=== PATIENT | female | born 1955 ===

== ENCOUNTER 2020-05-22 11:10 | Emergency (ER) | payer MEDICARE, OTHER ==
[2020-05-22] MEDS ORDERED: Sodium Chloride 0.9% 10 ML Syringe FLUSH PRN (11:24)
[2020-05-22] MEDS ORDERED: HYDROmorphone 2 MG/ML SDV IVPUSH ONE (11:25)
[2020-05-22] MEDS ORDERED: Ondansetron 4 MG/2 ML SDV IVPUSH ONE (11:25)
[2020-05-22] MEDS ORDERED: Sodium Chloride 0.9% 1,000 ML IV SCH (11:30)
[2020-05-22] MEDS ORDERED: Prochlorperazine 10 MG in Sodium Chloride 0.9% 50 ML IV ONE (12:14)
[2020-05-22] MEDS ORDERED: Iopamidol 755 Mg/ML 100 ML Bottle IV ONE (12:33)
--- NOTE | 2020-05-22 13:48 | CT ---
INDICATION: Abdominal pain, epigastric, left lower quadrant, suprapubic area. CT ABDOMEN AND PELVIS WITH CONTRAST: Spiral 3.75 mm axial sections were obtained through the abdomen and pelvis with 100 mL Isovue-370 at 2 mL per second, with sagittal and coronal reconstructions 05/22/20 and compared with 06/04/16. Total exam DLP was 1429.56 mGy-cm. There is some minimal linear density at the lingula which may represent fibrotic change. A definite active infiltrate or effusion was not identified. The heart is normal in size, no pericardial effusion was seen. A small low-density lesion in the posterior right lobe of the liver at the diaphragm is a new findings. It measures maximum of approximately 11 mm. Etiology is indeterminate. Most likely this represents a simple cyst. Additional new low-density lesion is also noted more inferiorly, similar in size with a tinier more anteriorly located right lobe lesion, both of which are either new or increased in size compared with the previous study. The gallbladder showed evidence of minimal gravel present within it, with a slightly prominent wall and some pericholecystic fluid and fat stranding suggested. This raises suspicion for cholecystitis and should be correlated clinically. The common bile duct did not appear to be enlarged in the head of the pancreas. The pancreas had a normal appearance, as did the spleen, adrenal glands, and except for a very tiny cyst off the lower pole of the right kidney previous previously, normal kidneys. Diverticulosis is noted in the descending colon and in the sigmoid colon. There may be some wall thickening of the sigmoid colon again raising question of sigmoid diverticulitis, there is some minimal fat stranding in that area, but no abscess formation or free air was seen. The urinary bladder was fairly normal in appearance. The uterus is absent compatible with hysterectomy. The appendix is absent compatible with appendectomy. No evidence of bowel obstruction or free air was seen. A tiny inguinal hernia is noted on the left, included only fat of questionable significance, present previously. IMPRESSION: 1. Findings suggest cholelithiasis with cholecystitis - correlate clinically. 2. Diverticulosis coli with possible sigmoid diverticulitis again suggested. Some minimal peritonitis in that area could be present as well as in the area of the gallbladder - pericholecystic fluid there. 3. New and/or increased cystic appearing structures in the liver, followup may be warranted. 4. Tiny cyst lower pole right kidney. 5. Post appendectomy. 6. Post hysterectomy. 7. Hypertrophic degenerative changes and disk disease L1-2 and to a greater extent at L2-3, but also a milder extent at L4-5. Report was called to Dr. Borges at 1319 hours. [facility]
--- NOTE | 2020-05-22 14:20 | EDM.PDOC ---
ED HPI GENERAL MEDICAL PROBLEM - General Chief Complaint: Abdominal Pain Stated Complaint: ABD PAIN Time Seen by Provider: 05/22/20 12:45 Source of Information: Reports: Patient History Limitations: Reports: No Limitations - History of Present Illness INITIAL COMMENTS - FREE TEXT/NARRATIVE: Patient presented to the ED because of epigastric and LLQ pain which started this morning.The pain is sharp and cramping, 10/10 with associated nausea and vomiting x 1. there is no associated fever or chills, no cough/cold. Denies any changes in bowel movements or urinary symptoms. Mid-Anterior Abdominal Pain Score (Numeric/FACES): 1 - Related Data Allergies Allergy/AdvReac Type Severity Reaction Status Date / Time diclofenac [From Voltaren] Allergy Severe Hives Verified 05/22/20 13:47 doxycycline Allergy Severe Hives Verified 05/22/20 13:46 amoxicillin [From Augmentin] Allergy Mild Diarrhea Verified 05/22/20 13:47 clavulanic acid Allergy Mild Diarrhea Verified 05/22/20 13:47 [From Augmentin] codeine Allergy Mild Nausea Verified 05/22/20 13:47 hydromorphone [From Dilaudid] Allergy Mild Nausea and Verified 05/22/20 13:47 Vomiting trazodone Allergy Unknown Other Verified 05/22/20 13:47 Home Meds: Home Meds ALPRAZolam [Alprazolam ER] 0.5 mg PO TID PRN 05/22/20 [History] Acetaminophen/HYDROcodone [[place] 325-5 MG] 1 - 2 tab PO Q4H PRN #15 tab 05/22/20 [Rx] FLUoxetine HCl [Fluoxetine HCl] 40 mg PO DAILY 05/22/20 [History] Ondansetron [Zofran ODT] 4 mg PO Q4H PRN #7 tab.dis 05/22/20 [Rx] Zolpidem [Ambien] 10 mg PO BEDTIME PRN 05/22/20 [History] levoFLOXacin [Levaquin] 500 mg PO DAILY #10 tab 05/22/20 [Rx] metroNIDAZOLE [Metronidazole] 500 mg PO TID #30 tablet 05/22/20 [Rx] Past Medical History HEENT History: Reports: Cataract, Other (See Below) Other HEENT History: myopia Gastrointestinal History: Reports: Colon Polyp, GERD Other Gastrointestinal History: Ulcerative colitis Genitourinary History: Reports: UTI, Recurrent SALVAGER History: Reports: Other (See Below) Other SALVAGER History: hysterectomy Musculoskeletal History: Reports: Arthritis Psychiatric History: Reports: Anxiety, Depression Other Psychiatric History: dysthymic disorder - Past Surgical History GI Surgical History: Reports: Appendectomy, Colonoscopy Musculoskeletal Surgical History: Reports: Carpal Tunnel Dermatological Surgical History: Reports: Skin Biopsy, Other (See Below) Social & Family History - Tobacco Use Smoking Status *Q: Never Smoker ED ROS GENERAL - Review of Systems Review Of Systems: See Below Constitutional: Reports: No Symptoms HEENT: Reports: No Symptoms Respiratory: Reports: No Symptoms Cardiovascular: Reports: No Symptoms Endocrine: Reports: No Symptoms GI/Abdominal: Reports: Abdominal Pain, Nausea, Vomiting : Reports: No Symptoms, Discharge Musculoskeletal: Reports: No Symptoms, Neck Pain Skin: Reports: No Symptoms Neurological: Reports: No Symptoms Psychiatric: Reports: No Symptoms ED EXAM, GI/ABD - Physical Exam Exam: See Below Exam Limited By: No Limitations General Appearance: Alert, No Apparent Distress Ears: Normal External Exam, Normal Canal, Hearing Grossly Normal Nose: Normal Inspection, Normal Mucosa Throat/Mouth: Normal Inspection, Normal Lips Head: Atraumatic, Normocephalic Neck: Normal Inspection, Supple, Non-Tender, Full Range of Motion Respiratory/Chest: No Respiratory Distress, Lungs Clear, Normal Breath Sounds Cardiovascular: Normal Peripheral Pulses, Regular Rate, Rhythm, No Edema, No Gallop GI/Abdominal Exam: Normal Bowel Sounds, Soft, No Organomegaly, Other (epigastri and LLQ tenderness) Back Exam: Normal Inspection Extremities: Normal Inspection, Normal Range of Motion Neurological: Alert, Oriented, CN II-XII Intact Course - Vital Signs Text/Narrative:: Lbas/CT-abd/pelvis result was discussed with patient NS 1 L bolus DZofran 4 mg IV x1 Dilaudid 1 mg IV x1 Compazine 10 mg IV x1 Last Recorded V/S: Last Vital Signs Temp 36.7 C 05/22/20 11:15 Pulse 56 L 05/22/20 11:15 Resp 18 05/22/20 11:15 BP 127/60 05/22/20 11:15 Pulse Ox 98 05/22/20 11:15 - Orders/Labs/Meds Labs: Laboratory Tests 05/22/20 05/22/20 05/22/20 Range/Units 11:35 11:35 13:23 Sodium 140 (135-145) mmol/L Potassium 3.7 (3.5-5.3) mmol/L Chloride 102 (100-110) mmol/L Carbon Dioxide 25 (21-32) mmol/L BUN 18 (7-18) mg/dL Creatinine 1.2 H (0.55-1.02) mg/dL Est Cr Clr Drug Dosing TNP Estimated GFR (MDRD) 45 L (>60) BUN/Creatinine Ratio 15.0 (9-20) Glucose 138 H (80-116) mg/dL Calcium 8.8 (8.6-10.2) mg/dL Total Bilirubin 0.4 (0.1-1.3) mg/dL AST 17 (5-25) IU/L ALT 21 (12-36) U/L Alkaline Phosphatase 59 (56-112) IU/L Total Protein 7.1 (6.0-8.0) g/dL Albumin 3.8 (3.2-4.6) g/dL Globulin 3.3 g/dL Albumin/Globulin Ratio 1.2 Amylase 38 (25-115) U/L Lipase 68 L (73-393) U/L Urine Color Yellow (YELLOW) Urine Appearance Clear (CLEAR) Urine pH 8.0 H (5.0-6.5) Ur Specific [place] 1.010 (1.010-1.025) Urine Protein Negative (NEGATIVE) mg/dL Urine Glucose (UA) Normal (NORMAL) mg/dL Urine Ketones Negative (NEGATIVE) mg/dL Urine Occult Blood Negative (NEGATIVE) Urine Nitrite Negative (NEGATIVE) Urine Bilirubin Negative (NEGATIVE) Urine Urobilinogen Normal (NEGATIVE) mg/dL Ur Leukocyte Esterase Negative (NEGATIVE) Urine RBC 0-5 (0-5) Urine WBC 0-5 (0-5) Ur Squamous Epith Cells Rare (NS,R,O) Urine Bacteria Rare H (NS) Urine Mucus Rare H (NS) Meds: Medications Discontinued Medications Generic Name Dose Route Start Last Admin Trade Name Freq PRN Reason Stop Dose Admin Hydromorphone HCl 1 mg 05/22/20 11:25 05/22/20 11:43 Dilaudid IVPUSH 05/22/20 11:26 1 mg ONETIME ONE Administration Sodium Chloride 1,000 mls @ 999 mls/hr 05/22/20 11:30 05/22/20 11:38 Normal Saline IV 999 mls/hr ASDIRECTED CHARBEL Administration Prochlorperazine Edisylate 10 52 mls @ 150 mls/hr 05/22/20 12:14 05/22/20 13:04 mg/ Sodium Chloride IV 05/22/20 12:34 Not Given ONETIME ONE Iopamidol 100 ml 05/22/20 12:33 05/22/20 12:44 Isovue-370 (76%) IV 05/22/20 12:34 100 ml . DIRECTED ONE Administration Ondansetron HCl 4 mg 05/22/20 11:25 05/22/20 11:38 Zofran IVPUSH 05/22/20 11:26 4 mg ONETIME ONE Administration Sodium Chloride 10 ml 05/22/20 11:24 05/22/20 11:46 Saline Flush FLUSH 10 ml ASDIRECTED PRN Administration Keep Vein Open Departure - Departure Time of Disposition: 14:15 Disposition: Home, Self-Care 01 Condition: Good Clinical Impression: Diverticulitis, Cholelithiasis - Discharge Information Prescriptions: levoFLOXacin [Levaquin] 500 mg PO DAILY #10 tab metroNIDAZOLE [Metronidazole] 500 mg PO TID #30 tablet Acetaminophen/HYDROcodone [[place] 325-5 MG] 1 - 2 tab PO Q4H PRN #15 tab PRN Reason: Pain Ondansetron [Zofran ODT] 4 mg PO Q4H PRN #7 tab.dis PRN Reason: Nausea Instructions: Diverticulitis, [id number] Referrals: Constantin Carmichael MD [Primary Care Provider] - Forms: ED Department Discharge Additional Instructions: please read discharhge instructions on diverticulitis Increase oral fluids zofran oDt 4 mg every 4 hours as nneeded for nausea [place] 5/325, 1-2 tablets every 4-6 hours as needed for pain Levaquin 500 mg daily for 10 day Flagyl 5900 mg 3 times daily for 10 days Follow up next week. Sepsis Event Note (ED) - Evaluation Sepsis Screening Result: No Definite Risk
== END 2020-05-22 14:37 | disposition home or self-care (01) ==
LOC: FB.ED 11:10
DX: K80.20 Calculus of gallbladder without cholecystitis without obstruction (principal); K57.92 Diverticulitis of intestine, part unspecified, without perforation or abscess without bleeding; F41.9 Anxiety disorder, unspecified; F32.9 Major depressive disorder, single episode, unspecified; Z79.899 Other long term (current) drug therapy; Z88.8 Allergy status to other drugs, medicaments and biological substances; Z88.1 Allergy status to other antibiotic agents; Z88.5 Allergy status to narcotic agent; Z90.49 Acquired absence of other specified parts of digestive tract; Z90.710 Acquired absence of both cervix and uterus; Z98.890 Other specified postprocedural states
CPT/HCPCS: 36415; 74177; 80053; 81001; 82150; 83690; 96361; 96374; 96375; 99284; 99284-25; J1170; J2405; J7030; Q9967